=== PATIENT | female | born 1995 | race Caucasian/White ===

== ENCOUNTER 2019-11-25 19:45 | Inpatient (IN) | payer SELFPAY ==
[2019-11-25] MEDS ORDERED: Butorphanol Tartrate 1 MG/ML VIAL SLOW IVP PRN (21:36)
[2019-11-25] MEDS ORDERED: Diphenoxylate HCl/Atropine Tablet PO PRN (21:36)
[2019-11-25] MEDS ORDERED: Ondansetron PF 4 MG/2 ML Vial IVP PRN (21:36)
[2019-11-25] MEDS ORDERED: Methylergonovine 0.2 MG/ML VIAL IM PRN (21:36)
[2019-11-25] MEDS ORDERED: Promethazine HCl 25 MG/ML VIAL IM PRN (21:36)
[2019-11-25] MEDS ORDERED: Ibuprofen 800 MG TAB PO PRN (21:36)
[2019-11-25] MEDS ORDERED: Lidocaine 1% (PF) 30 ML VIAL SC PRN (21:36)
[2019-11-25] MEDS ORDERED: hydrALAZINE 20 MG/ML VIAL SLOW IVP PRN (21:36)
[2019-11-25] MEDS ORDERED: Carboprost 250 MCG/ML AMP IM PRN (21:36)
[2019-11-25] MEDS ORDERED: HYDROcodone/Acetaminophen 5/325 mg Tablet PO PRN (21:36)
[2019-11-25] MEDS ORDERED: NS / Oxytocin 40 units/1000ml 1,000 ML IV PRN (21:36)
[2019-11-25] MEDS ORDERED: Misoprostol 200 MCG TAB PR PRN (21:36)
[2019-11-25] MEDS ORDERED: NS w/ Oxytocin 10 units 500 ML IV SCH ×2 (21:45)
[2019-11-26 00:25] VITALS: BMI 24.1
[2019-11-26] MEDS: Lactated Ringer's 1,000 ML IV SCH ×2 (01:10→10:04)
[2019-11-26] MEDS: Misoprostol 100 MCG TAB VAG SCH ×3 (01:11→10:04)
[2019-11-26 01:22] LABS: Hemoglobin 11.7 g/dL (12.0-16.0); Mean Corpuscular HGB CONC 33.5 g/dL (32.0-36.0); Mean Corpuscular Hemoglobin 27.1 pg (27.0-31.0); Mean Platelet Volume 9.4 fL (7.4-10.4); Platelet Count 198 thou/uL (130-400); RBC Distribution Width 12.4 % (11.5-14.5); Red Blood Cell (RBC) Count 4.31 mill/uL (4.20-5.40); White Blood Cell (WBC) Count 10.5 thou/uL (4.8-10.8)
[2019-11-26 02:01] LABS: HBSAg Index 0.16 S/CO (0-0.99); Hep B Surf Ag Non-Reactive S/CO (NonReactive)
[2019-11-26 07:11] LABS: Syphilis Antibody Nonreactive (Nonreactive); Syphilis Antibody Index 0.03 S/CO (<1.00 Non-Reactive)
[2019-11-26] MEDS ORDERED: Fentanyl 4 mcg/Bup 0.1% Cadd 0 ML ONE (07:51)
[2019-11-26] MEDS ORDERED: Benzocaine-Menthol 82.5 ML CAN TOP PRN (10:05)
[2019-11-26] MEDS ORDERED: Milk Of Magnesia 30 ML UDCUP PO PRN (10:05)
[2019-11-26] MEDS ORDERED: Ondansetron PF 4 MG/2 ML Vial IVP PRN (10:05)
[2019-11-26] MEDS ORDERED: Lanolin Ointment 7 GM TUBE TOP PRN (10:05)
[2019-11-26] MEDS ORDERED: Bisacodyl 10 MG SUPP PR PRN (10:05)
[2019-11-26] MEDS ORDERED: hydrALAZINE 20 MG/ML VIAL SLOW IVP PRN (10:05)
[2019-11-26] MEDS ORDERED: NS / Oxytocin 40 units/1000ml 1,000 ML IV SCH (10:05)
[2019-11-26] MEDS ORDERED: HYDROcodone/Acetaminophen 5/325 mg Tablet PO PRN (10:05)
[2019-11-26] MEDS: HYDROcodone/Acetaminophen 5/325 mg Tablet PO PRN (11:53)
[2019-11-26] MEDS: Ibuprofen 800 MG TAB PO SCH ×2 (15:02→21:26)
[2019-11-26] MEDS: Ferrous Sulfate 325 MG TAB PO SCH (15:59)
[2019-11-26] MEDS: Docusate Calcium (SURFAK) 240 MG CAP PO SCH (21:26)
[2019-11-27] MEDS: Ibuprofen 800 MG TAB PO SCH ×3 (05:09→21:03)
[2019-11-27] MEDS ORDERED: Adacel (T-DAP) 0.5 ML SYRINGE IM ONE (09:00)
[2019-11-27] MEDS: Ferrous Sulfate 325 MG TAB PO SCH ×2 (09:30→21:58)
[2019-11-27] MEDS: Prenatal Vitamin 1 TAB PO SCH (09:31)
[2019-11-27] MEDS: Docusate Calcium (SURFAK) 240 MG CAP PO SCH ×2 (09:31→21:03)
[2019-11-27] MEDS: HYDROcodone/Acetaminophen 5/325 mg Tablet PO PRN (09:36)
[2019-11-28] MEDS: Ibuprofen 800 MG TAB PO SCH ×2 (05:13→14:21)
[2019-11-28 09:12] VITALS: BP 98/59; TEMP 98.2
[2019-11-28] MEDS: Docusate Calcium (SURFAK) 240 MG CAP PO SCH (10:11)
[2019-11-28] MEDS: Prenatal Vitamin 1 TAB PO SCH (10:11)
[2019-11-28] MEDS: Ferrous Sulfate 325 MG TAB PO SCH (10:11)
== END 2019-11-28 16:15 | disposition home or self-care (01) | DRG 807 ==
LOC: L&D 21:31 → 3SW 11-26 11:49
PROVIDERS: ADMIT Family Medicine; ATTEND Family Medicine
PROC: 10907ZC Drainage of Amniotic Fluid, Therapeutic from Products of Conception, Via Natural or Artificial Opening (ICD-10-PCS; 2019-11-25)
PROC: 3E0P7VZ Introduction of Hormone into Female Reproductive, Via Natural or Artificial Opening (ICD-10-PCS; 2019-11-25)
PROC: 10E0XZZ Delivery of Products of Conception, External Approach (ICD-10-PCS; principal; 2019-11-26)
PROC: 0KQM0ZZ Repair Perineum Muscle, Open Approach (ICD-10-PCS; 2019-11-26)
PROC: 3E0334Z Introduction of Serum, Toxoid and Vaccine into Peripheral Vein, Percutaneous Approach (ICD-10-PCS; 2019-11-26)
DX: O24.420 Gestational diabetes mellitus in childbirth, diet controlled (principal); Z37.0 Single live birth; Z3A.39 39 weeks gestation of pregnancy; O76 Abnormality in fetal heart rate and rhythm complicating labor and delivery; O70.1 Second degree perineal laceration during delivery
CPT/HCPCS: 36415; 85027; 85461; 86780; 86850; 86870; 86900; 86901; 87340; 90384; 96372; J0595